=== PATIENT | male | born 1975 | race Hispanic/Latino ===

== ENCOUNTER 2019-10-08 03:43 | Emergency (ER) | payer BC ==
[2019-10-08] MEDS ORDERED: MORPHINE 2 MG/1 ML INJ IV ONE (04:01)
--- NOTE | 2019-10-08 04:01 | Emergency Department Report ---
ED Chest Pain HPI - General Stated Complaint: CHEST PAIN Time Seen by Provider: 10/08/19 03:57 Source: patient, EMS Mode of arrival: Stretcher Limitations: No Limitations - History of Present Illness Initial Comments: Patient is a 44-year-old male that presents emergency room with complaints of chest pain shortness of breath. Patient states his symptoms started approximately 2 hours ago. Patient brought in by EMS. Report received from EMS. Patient states that he was given aspirin nitro and his pain and shortness of breath improved. Patient states his pain shortness of breath are worse with exertion and better with rest. 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 denies: nausea, vomting Other Symptoms: denies: cough, fever, syncope, rash, acid taste in mouth, leg swelling, palpitations Treatments Prior to Arrival: aspirin, nitroglycerin Aspirin use within the Past 7 Days: (0) No - Related Data On Oral Contraceptives: No Home Medications Medication Instructions Recorded Confirmed Last Taken No Known Home Medications [No 10/08/19 10/08/19 Unknown Reported Home Medications] Allergies Allergy/AdvReac Type Severity Reaction Status Date / Time No Known Allergies Allergy Unverified 10/08/19 04:00 Heart Score - HEART Score History: Highly suspicious EKG: Normal Age: 45-65 Risk factors: 1-2 risk factors Troponin: < normal limit HEART Score: 4 ED Review of Systems ROS: Stated complaint: CHEST PAIN Other details as noted in HPI Constitutional: denies: chills, fever Eyes: denies: eye pain, eye discharge, vision change ENT: denies: ear pain, throat pain Respiratory: shortness of breath, SOB with exertion, SOB at rest. denies: cough, wheezing Cardiovascular: chest pain. denies: palpitations Endocrine: no symptoms reported Gastrointestinal: denies: abdominal pain, nausea, diarrhea Genitourinary: denies: urgency, dysuria Musculoskeletal: denies: back pain, joint swelling, arthralgia Skin: denies: rash, lesions Neurological: denies: headache, weakness, paresthesias Psychiatric: denies: anxiety, depression Hematological/Lymphatic: denies: easy bleeding, easy bruising ED Past Medical Hx - Past Medical History Previous Medical History?: No - Surgical History Past Surgical History?: Yes - Family History Family history: no significant - Social History Smoking Status: Current Every Day Smoker Substance Use Type: None - Medications Home Medications: Home Medications Medication Instructions Recorded Confirmed Last Taken Type No Known Home Medications [No 10/08/19 10/08/19 Unknown History Reported Home Medications] ED Physical Exam - General Limitations: No Limitations General appearance: alert, in distress - Head Head exam: Present: atraumatic, normocephalic - Eye Eye exam: Present: normal appearance - ENT ENT exam: Present: mucous membranes moist - Neck Neck exam: Present: normal inspection - Respiratory Respiratory exam: Present: normal lung sounds bilaterally, respiratory distress. Absent: wheezes, rales, chest wall tenderness - Cardiovascular Cardiovascular Exam: Present: regular rate, normal rhythm. Absent: systolic murmur, diastolic murmur, rubs, gallop - GI/Abdominal GI/Abdominal exam: Present: soft, normal bowel sounds. Absent: distended, tenderness, guarding - Rectal Rectal exam: Present: deferred - Extremities Exam Extremities exam: Present: normal inspection - Back Exam Back exam: Present: normal inspection - Neurological Exam Neurological exam: Present: alert, oriented X3 - Psychiatric Psychiatric exam: Present: normal affect, normal mood - Skin Skin exam: Present: warm, intact, normal color, diaphoretic. Absent: rash ED Course Vital Signs 10/08/19 10/08/19 10/08/19 04:05 04:30 05:00 Temperature 98 F Pulse Rate 66 63 57 L Respiratory 18 15 17 Rate Blood Pressure 131/79 121/79 Blood Pressure 125/75 [Right] O2 Sat by Pulse 99 99 97 Oximetry - Reevaluation(s) Reevaluation #1: Patient's diaphoresis has improved, patient shortness of breath has improved. Patient states his chest pain is improved. I discussed all results with patient. I discussed plan of care with patient. Patient agrees with plan of care and admission. Patient to be admitted to the hospitalist service. 10/08/19 05:46 - Consultations Consultation #1: Hospitalist consulted for admission. Hospitalist to admit patient. 10/08/19 05:46 GREER score - Greer Score Age > 65: (0) No Aspirin use within the Past 7 Days: (0) No 3 or more CAD Risk Factors: (0) No 2 or more Angina events in past 24 hrs: (0) No Known CAD with more than 50% Stenosis: (0) No Elevated Cardiac Markers: (0) No ST Deviation Greater than 0.5mm: (0) No GREER Score: 0 ED Medical Decision Making - Lab Data Result diagrams: 10/08/19 04:06 10/08/19 04:06 - EKG Data -: EKG Interpreted by Me EKG shows normal: sinus rhythm, axis, intervals, QRS complexes, ST-T waves Rate: normal - Radiology Data Radiology results: report reviewed, image reviewed interpreted by me: No acute findings on chest x-ray. CT angiography of the chest with 2-D reconstructions INDICATION: Chest pain and shortness of breath Thin section axial images were obtained as well as 2-D reformatted MIP images in all 3 planes FINDINGS: There is no hilar or mediastinal adenopathy. No pleural or pericardial effusion. Lung windows show no masses or infiltrates. There is a 1 cm nodule in the left upper lobe however with slight surrounding nodularity as well. Lungs and pleural spaces otherwise are clear. There is no thoracic aortic aneurysm or dissection present. Routine axial images as well as 2-D reconstructions through the pulmonary arteries show no evidence of emboli. IMPRESSION: Left upper lobe nodule could either be inflammatory or neoplastic. Follow-up chest CT in 3 months may be of benefit to confirm stability. There is no pneumonia or PTE. - Medical Decision Making Patient is a 44-year-old male that presents emergency room with complaints of chest pain and shortness of breath. Patient on initial evaluation complained of chest pain short of breath and diaphoresis. Patient was extremely diaphoretic. Patient was brought in by EMS. Report received from EMS. EMS gave the patient aspirin and nitro in route. The patient chest pain did improve with aspirin and nitro but not resolved. Patient was given morphine and morphine improve the patient's diaphoresis and chest pain and shortness of breath. Pat ient heart score of 4. Patient cardiac risk factors include smoking. Patient labs unremarkable. Patient's EKG is negative for acute findings. Patient's chest x-ray is negative. Due to the patient's symptoms patient had a CTA and showed no PE but a lung nodule. Patient admitted to the hospitalist service for further evaluation and treatment and rule out ACS. - Differential Diagnosis acs. sob. cp. pe. pna. Critical Care Time: Yes Critical care time in (mins) excluding proc time.: 35 Critical care attestation.: If time is entered above; I have spent that time in minutes in the direct care of this critically ill patient, excluding procedure time. Critical Care Time: 35 minutes ED Disposition Clinical Impression: SOB (shortness of breath), Diaphoresis Chest pain Qualifiers: Chest pain type: unspecified Qualified Code(s): R07.9 - Chest pain, unspecified Disposition: DC-09 OP ADMIT IP TO THIS HOSP Is pt being admited?: Yes Does the pt Need Aspirin: No Condition: Critical Time of Disposition: 05:46
[2019-10-08 04:19] LABS: Basophils # (Auto) 0.1 K/mm3 (0.0-0.1); Basophils % (Auto) 1.2 % (0.0-1.8); Eosinophils % (Auto) 0.6 % (0.0-4.3); Hematocrit 44.7 % (35.5-45.6); Hemoglobin 15.4 gm/dl (11.8-15.2); Lymphocytes # (Auto) 1.9 K/mm3 (1.2-5.4); Lymphocytes % (Auto) 23.8 % (13.4-35.0); Mean Corpuscular HGB Conc 34 % (32-34); Mean Corpuscular Volume 85 fl (84-94); Monocytes # (Auto) 0.6 K/mm3 (0.0-0.8); Monocytes % (Auto) 7.3 % (0.0-7.3); Platelet Count 225 K/mm3 (140-440); Red Blood Count 5.27 M/mm3 (3.65-5.03); Red Cell Distribution Width 13.7 % (13.2-15.2)
[2019-10-08 04:32] LABS: INR 0.9 (0.87-1.13)
[2019-10-08 04:33] LABS: Partial Thromboplastin Time 27.6 Sec. (24.2-36.6)
[2019-10-08 04:43] LABS: Alanine Aminotransferase 12 units/L (7-56); Albumin 4.6 g/dL (3.9-5); BUN/Creatinine Ratio 20; Blood Urea Nitrogen 14 mg/dL (9-20); Calcium 9.6 mg/dL (8.4-10.2); Hemolysis Index 14
--- NOTE | 2019-10-08 04:48 | XRay Report ---
CHEST 1 VIEW INDICATION / CLINICAL INFORMATION: Chest Pain. COMPARISON: None available. FINDINGS: SUPPORT DEVICES: None. HEART / MEDIASTINUM: No significant abnormality. LUNGS / PLEURA: No significant pulmonary or pleural abnormality. No pneumothorax. ADDITIONAL FINDINGS: No significant additional findings. IMPRESSION: 1. No significant change Signer Name: Mason Duran MD Signed: 10/08/2019 4:44 AM Workstation Name: [id number]
--- NOTE | 2019-10-08 05:10 | Cat Scan Report ---
CT angiography of the chest with 2-D reconstructions INDICATION: Chest pain and shortness of breath Thin section axial images were obtained as well as 2-D reformatted MIP images in all 3 planes FINDINGS: There is no hilar or mediastinal adenopathy. No pleural or pericardial effusion. Lung windo ws show no masses or infiltrates. There is a 1 cm nodule in the left upper lobe however with slight s urrounding nodularity as well. Lungs and pleural spaces otherwise are clear. There is no thoracic aor tic aneurysm or dissection present. Routine axial images as well as 2-D reconstructions through the p ulmonary arteries show no evidence of emboli. IMPRESSION: Left upper lobe nodule could either be inflammatory or neoplastic. Follow-up chest CT in 3 months may be of benefit to confirm stability. There is no pneumonia or PTE. Automated exposure control was utilized to diminish radiation dose. Signer Name: Mason Duran MD Signed: 10/08/2019 5:06 AM Workstation Name: [id number]
[2019-10-08 06:04] VITALS: BP 128/86
== END 2019-10-08 06:20 | disposition left against medical advice (07) ==
LOC: ED 03:43
DX: R61 Generalized hyperhidrosis (principal); R07.89 Other chest pain; R06.02 Shortness of breath; F17.200 Nicotine dependence, unspecified, uncomplicated
CPT/HCPCS: 36415; 71045; 71275; 80053; 84484; 85025; 85610; 85730; 93005; 93010; 96374; 99285; J2270; Q9967